=== PATIENT | female | born 1980 ===

== ENCOUNTER 2019-09-25 17:37 | Emergency (ER) | payer SELFPAY ==
[~2019-09-25] VITALS: Ht 152 cm; Wt 56.0 kg
[~2019-09-25 17:37] MED LIST: FERR325T74 PO; OXYC-12 PO; PREN1TAB39 PO
--- OUTSIDE RECORDS SUMMARY | 2019-09-25 17:43 | XMS REPORT ---
Author Author Hanny SONG Organization [employer] Address Unknown Phone Unavailable Care Team Providers Care [employer] Cross[employer] Protection Maintainer Name Role Phone MURALI SONG CP Unavailable Allergies, Adverse Reactions, Alerts Substance Reaction Event Type N.K.D.A. Info Not Available Non Drug Allergy Problems Problem Type Condition Code Onset Dates Condition Statu s Assessment Bite or sting by insect with infection W57.XXXA Active Medications Medication Code System Code Instructions Start Date End Date Status Dosage Bactrim DS [facility] [address]-15 800-160 MG Orally Twice a day Apr 19, 2015 Apr 29, 2015 1 tablet Procedures Procedure Coding System Code Date ROCEPHIN 1 GM (IM) CPT-4 J0696 Apr 19, 2015 THER/PROPH/DIAG INJ, SC/IM CPT-4 36364 Mar 232014 Office Visit, Est Pt., Level 3 CPT-4 23456 D 2014 Vital Signs Date/Time: Apr 19, 2015 Temperature 98.0 F Weight 118.9 lbs Height 62 in BMI 21.74 Index Blood Pressure Diastolic 72 mmHg Blood Pressure Systolic 110 mmHg Cardiac Monitoring Heart Rate 84 bpm Results No Known Results Summary Purpose [employer] Submission
--- OUTSIDE RECORDS SUMMARY | 2019-09-25 17:43 | XMS REPORT ---
Author Author Hanny Chavis Doctor Organization [facility] Address Unknown Phone Unavailable Care Team Providers Care Whitewasher Name Role Phone Migration, Doctor Unavailable Unavailable PROBLEMS Type Condition ICD9-CM Code [id number] Code Onset Dates Condition S tatus SNOMED Code Problem Chronic fatigue R53.82 Active 8422 9001 Problem Slow transit constipation K59.01 Acti ve [id number] ALLERGIES No Information ENCOUNTERS Encounter Location Date Diagnosis [place] [address] [address] Jul, Chronic fatigue R53.82 ; Taz r loss L65.9 ; Slow transit constipation K59.01 ; Pain in right shoulder M25.511 and Pain in left shoulder M25.512 [place] [address] [address] Mar, Bite or sting by insect with infection [id number].XXXA [place] [address] [address] Nov, [facility] [address] [address] Nov, [facility] [address] [address] Nov, [facility] [address] [address] Nov, [facility] [address] [address] Nov, [facility] [address] [address] Nov, [facility] [address] [place] [id number] [address] [place] [address] Jul, [facility] [address] [id number] [address] [place] [address], [place] [address] Jul, [facility] [address] [id number] [address] [place] [address], [place] [address] Jun, [facility] [address] [id number] [address] [place] [address], [place] [address] Jun, [facility] [address] [id number] [address] [place] [address], [place] [address] May, [facility] [address] [id number] [address] [place] [address], [place] [address] May, [facility] [address] [id number] [address] [place] [address], [place] [address] Apr, [facility] [address] [id number] [address] [place] [address], [place] [address] Apr, [facility] [address] [id number] [address] [place] [address], [place] [address] Apr, [facility] [address] [id number] [address] [place] [address], [place] [address] Apr, [facility] [address] [id number] [address] [place] [address], [place] [address] Apr, [facility] [address] [id number] [address] [place] [address], [place] [address] Mar, [facility] [address] [id number] [address] [place] [address], [place] [address] Mar, [facility] [address] [id number] [address] [place] [address], [place] [address] Feb, [facility] [address] [id number] [address] [place] [address], [place] [address] Feb, [facility] [address] [id number] [address] [place] [address], [place] [address] Oct, [facility] [address] [id number] [address] [place] [address], [place] [address] Jul, 2011 [facility] [address] [id number] [address] [place] [address], [place] [address] 18 Jul, 2011 [facility] [address] [id number] [address] [place] [address], [place] [address] 16 Jul, 2011 [facility] [address] [id number] [address] [place] [address], [place] [address] 14 Jul, 2011 [facility] [address] [id number] [address] [place] [address], [place] [address] 13 Jul, 2011 [facility] [address] [id number] [address] [place] [address], [place] [address] 11 Jul, 2011 [facility] [address] [id number] [address] [place] [address], [place] [address] 26 Jun, 2011 [facility] [address] [id number] [address] [place] [address], [place] [address] Jun, [facility] [address] [id number] [address] [place] [address], [place] [address] 29 May, 2011 [facility] [address] [id number] [address] [place] [address], [place] [address] 13 May, 2011 [facility] [address] [id number] [address] [place] [address], [place] [address] Apr, [facility] [address] [id number] [address] [place] [address], [place] [address] Apr, [facility] [address] [id number] [address] [place] [address], [place] [address] Apr, [facility] [address] [id number] [address] [place] [address], [place] [address] 14 Mar, 2011 [facility] [address] [id number] [address] [place] [address], [place] [address] 14 Mar, 2011 [facility] [address] [id number] [address] [place] [address], [place] [address] 16 Feb, 2011 [facility] [address] [id number] [address] [place] [address] Feb, [facility] [address] [id number] [address] [place] [address] Feb, [facility] [address] [id number] [address] [place] [address] Jan, [facility] [address] [id number] [address] [place] [address] Jan, [facility] [address] [id number] [address] [place] [address] Jan, [facility] [address] [id number] [address] [place] [address] Jan, [facility] [address] [id number] [address] [place] [address] Jan, [facility] [address] [id number] [address] [place] [address] Oct, IMMUNIZATIONS No Known Immunizations SOCIAL HISTORY Never Assessed REASON FOR VISIT EMR[place] [place] CARE VITAL SIGNS MEDICATIONS No Known Medications RESULTS No Results PROCEDURES No Known procedures INSTRUCTIONS MEDICATIONS ADMINISTERED No Known Medications
--- OUTSIDE RECORDS SUMMARY | 2019-09-25 17:43 | XMS REPORT ---
Author Author Hanny Chavis Doctor Organization [facility] Address Unknown Phone Unavailable Care Team Providers Care [employer] Internship Name Role Phone Migration, Doctor Unavailable Unavailable PROBLEMS Type Condition ICD9-CM Code QCB90-SV Code Onset Dates Condition S tatus SNOMED Code Problem Chronic fatigue R53.82 Active 8422 9001 Problem Slow transit constipation K59.01 Acti ve [id number] ALLERGIES No Information ENCOUNTERS Encounter Location Date Diagnosis [place] [address] [address] Jul, Chronic fatigue R53.82 ; Taz r loss L65.9 ; Slow transit constipation K59.01 ; Pain in right shoulder M25.511 and Pain in left shoulder M25.512 [place] [address] [address] Mar, Bite or sting by insect with infection W57.XXXA [place] [address] [address] Nov, [facility] [address] [address] Nov, [facility] [address] [address] Nov, [facility] [address] [address] Nov, [facility] [address] [address] Nov, [facility] [address] [address] Nov, [facility] [address] [place] [id number] [address] [place] [address] Jul, [facility] [address] [id number] [address] [place] [address], [place] [address] Jul, [facility] [address] [id number] [address] [place] [address], [place] [address] Jun, [facility] [address] [id number] [address] [place] [address], [place] [address] Jun, [facility] [address] [id number] [address] [place] [address], [place] [address] May, [facility] [address] [id number] [address] [place] [address], [place] [address] May, [facility] [address] [id number] [address] [place] [address], [place] [address] Apr, [facility] [address] [id number] [address] [place] [address], [place] [address] Apr, [facility] [address] [id number] [address] [place] [address], [place] [address] Apr, [facility] [address] [id number] [address] [place] [address], [place] [address] Apr, [facility] [address] [id number] [address] [place] [address], [place] [address] Apr, [facility] [address] [id number] [address] [place] [address], [place] [address] Mar, [facility] [address] [id number] [address] [place] [address], [place] [address] Mar, [facility] [address] [id number] [address] [place] [address], [place] [address] Feb, [facility] [address] [id number] [address] [place] [address], [place] [address] Feb, [facility] [address] [id number] [address] [place] [address], [place] [address] Oct, [facility] [address] [id number] [address] [place] [address], [place] [address] Jul, 2011 [facility] [address] [id number] [address] [place] [address], [place] [address] 18 Jul, 2011 [facility] [address] [id number] [address] [place] [address], [place] [address] 16 Jul, 2011 [facility] [address] [id number] [address] [place] [address], [place] [address] 14 Jul, 2011 [facility] [address] [id number] [address] [place] [address], [place] [address] 13 Jul, 2011 [facility] [address] [id number] [address] [place] [address], [place] [address] 11 Jul, 2011 [facility] [address] [id number] [address] [place] [address], [place] [address] 26 Jun, 2011 [facility] [address] [id number] [address] [place] [address], [place] [address] Jun, [facility] [address] [id number] [address] [place] [address], [place] [address] 29 May, 2011 [facility] [address] [id number] [address] [place] [address], [place] [address] 13 May, 2011 [facility] [address] [id number] [address] [place] [address], [place] [address] Apr, [facility] [address] [id number] [address] [place] [address], [place] [address] Apr, [facility] [address] [id number] [address] [place] [address], [place] [address] Apr, [facility] [address] [id number] [address] [place] [address], [place] [address] 14 Mar, 2011 [facility] [address] [id number] [address] [place] [address], [place] [address] 14 Mar, 2011 [facility] [address] [id number] [address] [place] [address], [place] [address] 16 Feb, 2011 [facility] [address] [id number] [address] [place] [address] Feb, [facility] [address] [id number] [address] [place] [address] Feb, [facility] [address] [id number] [address] [place] [address] Jan, [facility] [address] [id number] [address] [place] [address] Jan, [facility] [address] [id number] [address] [place] [address] Jan, [facility] [address] [id number] [address] [place] [address] Jan, [facility] [address] [id number] [address] [place] [address] Jan, [facility] [address] [id number] [address] [place] [address] Oct, IMMUNIZATIONS No Known Immunizations SOCIAL HISTORY Never Assessed REASON FOR VISIT PLAN OF CARE VITAL SIGNS MEDICATIONS No Known Medications RESULTS No Results PROCEDURES No Known procedures INSTRUCTIONS MEDICATIONS ADMINISTERED No Known Medications
--- OUTSIDE RECORDS SUMMARY | 2019-09-25 17:43 | XMS REPORT ---
Author Author Hanny Fair Organization [facility] Address [address] [place] [address] Care Team Providers Care Gizzard Skin Remover Name Role Phone MOSES Fair Unavailable PROBLEMS Type Condition ICD9-CM Code ERK26-QH Code Onset Dates Condition S tatus SNOMED Code Problem Chronic fatigue R53.82 Active 8422 9001 Problem Slow transit constipation K59.01 Acti ve [id number] ALLERGIES No Information ENCOUNTERS Encounter Location Date Diagnosis [place] [address] [address] [place] [id number] [address] [place] [address] Dec, [place] [address] [address] Jul, Chronic fatigue R53.82 ; Taz r loss L65.9 ; Slow transit constipation K59.01 ; Pain in right shoulder M25.511 and Pain in left shoulder M25.512 [place] [address] [place] [id number] [address] [place] [address] Mar, Bite or sting by insect with infection W57.XXXA [place] [address] [place] [address] Nov, [place] [address] [place] [id number] [address] [place] [address] Nov, [place] [address] [place] [id number] [address] [place] [address] Nov, [place] [address] [place] [id number] [address] [place] [address] Nov, [place] [address] [place] [id number] [address] [place] [address] Nov, [facility] [address] [id number] [address] [place] [address], [place] [address] Nov, [facility] [address] [id number] [address] [place] [address], [place] [address] Jul, [facility] [address] [id number] [address] [place] [address], [place] [address] Jul, [facility] [address] [id number] [address] [place] [address], [place] [address] Jun, [facility] [address] [id number] [address] [place] [address], [place] [address] Jun, [facility] [address] [id number] [address] [place] [address], [place] [address] May, [facility] [address] [id number] [address] [place] [address], [place] [address] May, [facility] [address] [id number] [address] [place] [address], [place] [address] Apr, [facility] [address] [id number] [address] [place] [address], [place] [address] Apr, [facility] [address] [id number] [address] [place] [address], [place] [address] Apr, [facility] [address] [id number] [address] [place] [address], [place] [address] Apr, [facility] [address] [id number] [address] [place] [address], [place] [address] Apr, [facility] [address] [id number] [address] [place] [address], [place] [address] Mar, [facility] [address] [id number] [address] [place] [address], [place] [address] Mar, [facility] [address] [id number] [address] [place] [address], [place] [address] Feb, [facility] [address] [id number] [address] [place] [address], [place] [address] 06 Feb, 2012 [facility] [address] [id number] [facility] [place] [address] 05 Oct, 2011 [facility] [address] [id number] [address] [place] [address], [place] [address] 25 Jul, 2011 [facility] [address] [id number] [address] [place] [address], [place] [address] 18 Jul, 2011 [facility] [address] [id number] [address] [place] [address], [place] [address] 16 Jul, 2011 [facility] [address] [id number] [address] [place] [address], [place] [address] 14 Jul, 2011 [facility] [address] [id number] [address] [place] [address], [place] [address] 13 Jul, 2011 [facility] [address] [id number] [address] [place] [address], [place] [address] Jul, [facility] [address] [id number] [address] [place] [address], [place] [address] Jun, [facility] [address] [id number] [address] [place] [address], [place] [address] Jun, [facility] [address] [id number] [address] [place] [address], [place] [address] 29 May, 2011 [facility] [address] [id number] [address] [place] [address], [place] [address] 13 May, 2011 [facility] [address] [id number] [address] [place] [address], [place] [address] Apr, [facility] [address] [id number] [address] [place] [address], [place] [address] Apr, [facility] [address] [id number] [address] [place] [address], [place] [address] Apr, [facility] [address] [id number] [address] [place] [address], [place] [address] 14 Mar, 2011 [facility] [address] [id number] [address] [place] [address] 14 Mar, 2011 [facility] [address] [id number] [address] [place] [address] Feb, [facility] [address] [id number] [address] [place] [address] 16 Feb, 2011 [facility] [address] [id number] [address] [place] [address] 04 Feb, 2011 [facility] [address] [id number] [address] [place] [address] Jan, [facility] [address] [id number] [address] [place] [address] Jan, [facility] [address] [id number] [address] [place] [address] Jan, [facility] [address] [id number] [address] [place] [address] Jan, [facility] [address] [id number] [address] [place] [address] Jan, [facility] [address] [id number] [address] [place] [address] Oct, IMMUNIZATIONS No Known Immunizations SOCIAL HISTORY Never Assessed REASON FOR VISIT PLAN OF CARE VITAL SIGNS Height 62 in 2013-11-29 Weight 111.89 lbs 2013-11-29 Temperature 97.9 degrees Fahrenheit 2013-11-29 Heart Rate 80 bpm 2013-11-29 Respiratory Rate 18 2013-11-29 Blood pressure systolic 108 mmHg 2013-11-29 Blood pressure diastolic 70 mmHg 2013-11-29 MEDICATIONS Unknown Medications RESULTS No Results PROCEDURES Procedure Date Ordered Result Body Site TRICHOMONAS VAGIN, DIR PROBE Nov 29, 2013 SCR PAP SMER;NEW PT OBTAIN PREP&CONVY-LAB Nov 29, 2013 CYTOPATH C/V AUTO FLUID REDO Nov 29, 2013 CHYLMD TRACH, DNA, AMP PROBE Nov 29, 2013 CULTURE, BACTERIA, OTHER Nov 29, 2013 INSTRUCTIONS MEDICATIONS ADMINISTERED No Known Medications
--- OUTSIDE RECORDS SUMMARY | 2019-09-25 17:43 | XMS REPORT ---
Author Author Hanny Chavis Doctor Organization [facility] Address Unknown Phone Unavailable Care Team Providers Care Compotype Operator Name Role Phone Migration, Doctor Unavailable Unavailable PROBLEMS Type Condition ICD9-CM Code LOS58-GT Code Onset Dates Condition S tatus SNOMED Code Problem Chronic fatigue R53.82 Active 8422 9001 Problem Slow transit constipation K59.01 Acti ve [id number] ALLERGIES No Information ENCOUNTERS Encounter Location Date Diagnosis [facility] [address] [address] Jul, Chronic fatigue R53.82 ; Taz r loss L65.9 ; Slow transit constipation K59.01 ; Pain in right shoulder M25.511 and Pain in left shoulder M25.512 [place] [address] [address] Mar, Bite or sting by insect with infection [id number].XXXA [place] [address] [address] Nov, [facility] [address] [address] Nov, [facility] [address] [address] Nov, [facility] [address] [address] Nov, [facility] [address] [address] Nov, [facility] [address] [address] Nov, [facility] [address] [place] [id number] [address] [place] [address] Jul, [facility] [address] [id number] [address] [place] [address], [place] [address] Jul, [facility] [address] [id number] [address] [place] [address], [place] [address] Jun, [facility] [address] [id number] [address] [place] [address], [place] [address] Jun, [facility] [address] [id number] [address] [place] [address], [place] [address] May, [facility] [address] [id number] [address] [place] [address], [place] [address] May, [facility] [address] [id number] [address] [place] [address], [place] [address] Apr, [facility] [address] [id number] [address] [place] [address], [place] [address] Apr, [facility] [address] [id number] [address] [place] [address], [place] [address] Apr, [facility] [address] [id number] [address] [place] [address], [place] [address] Apr, [facility] [address] [id number] [address] [place] [address], [place] [address] Apr, [facility] [address] [id number] [address] [place] [address], [place] [address] Mar, [facility] [address] [id number] [address] [place] [address], [place] [address] Mar, [facility] [address] [id number] [address] [place] [address], [place] [address] Feb, [facility] [address] [id number] [address] [place] [address], [place] [address] Feb, [facility] [address] [id number] [address] [place] [address], [place] [address] Oct, [facility] [address] [id number] [address] [place] [address], [place] [address] Jul, 2011 [facility] [address] [id number] [address] [place] [address], [place] [address] 18 Jul, 2011 [facility] [address] [id number] [address] [place] [address], [place] [address] 16 Jul, 2011 [facility] [address] [id number] [address] [place] [address], [place] [address] 14 Jul, 2011 [facility] [address] [id number] [address] [place] [address], [place] [address] 13 Jul, 2011 [facility] [address] [id number] [address] [place] [address], [place] [address] 11 Jul, 2011 [facility] [address] [id number] [address] [place] [address], [place] [address] 26 Jun, 2011 [facility] [address] [id number] [address] [place] [address], [place] [address] Jun, [facility] [address] [id number] [address] [place] [address], [place] [address] 29 May, 2011 [facility] [address] [id number] [address] [place] [address], [place] [address] 13 May, 2011 [facility] [address] [id number] [address] [place] [address], [place] [address] Apr, [facility] [address] [id number] [address] [place] [address], [place] [address] Apr, [facility] [address] [id number] [address] [place] [address], [place] [address] Apr, [facility] [address] [id number] [address] [place] [address], [place] [address] 14 Mar, 2011 [facility] [address] [id number] [address] [place] [address], [place] [address] 14 Mar, 2011 [facility] [address] [id number] [address] [place] [address], [place] [address] 16 Feb, 2011 [facility] [address] [id number] [address] [place] [phone] Feb, [facility] [address] [id number] [address] [place] [phone] Feb, [facility] [address] [id number] [address] [place] [id number] Jan, [facility] [address] [id number] [address] [place] [phone] Jan, [facility] [address] [id number] [address] [place] [phone] Jan, [facility] [address] [id number] [address] [place] [id number] Jan, [facility] [address] [id number] [address] [place] [phone] Jan, [facility] [address] [id number] [address] [place] [phone] Oct, IMMUNIZATIONS No Known Immunizations SOCIAL HISTORY Never Assessed REASON FOR VISIT [place] [place] CARE VITAL SIGNS MEDICATIONS No Known Medications RESULTS No Results PROCEDURES No Known procedures INSTRUCTIONS MEDICATIONS ADMINISTERED No Known Medications
--- OUTSIDE RECORDS SUMMARY | 2019-09-25 17:43 | XMS REPORT ---
Author Author Hanny SOL [facility] Address [address] [place] [address] Care Team Providers Care Aluminum Container Tester Name Role Phone MANUEL SOL Unavailable PROBLEMS Type Condition ICD9-CM Code [id number] Code Onset Dates Condition S tatus SNOMED Code Problem Chronic fatigue R53.82 Active 8422 9001 Problem Slow transit constipation K59.01 Acti ve [id number] ALLERGIES No Information ENCOUNTERS Encounter Location Date Diagnosis [facility] [address] [place] [id number] [address] [place] [address] Jul, Chronic fatigue R53.82 ; Taz r loss L65.9 ; Slow transit constipation K59.01 ; Pain in right shoulder M25.511 and Pain in left shoulder M25.512 [facility] [address] [place] [id number] [address] [place] [address] Mar, Bite or sting by insect with infection [id number].XXXA [facility] [address] [facility] [id number] [address] [place] [phone] Nov, [facility] [address] [facility] [id number] [address] [place] [address] Nov, [facility] [address] [facility] [id number] [address] [place] [phone] Nov, [facility] [address] [facility] [id number] [address] [place] [address] Nov, [facility] [address] [place] [id number] [address] [place] [address] Nov, [facility] [address] [place] [id number] [address] [place] [address] Nov, [facility] [address] [id number] [address] [place] [address], [place] [id number] Jul, [facility] [address] [id number] [address] [place] [address], [place] [id number] Jul, [facility] [address] [id number] [address] [place] [address], [place] [id number] Jun, [facility] [address] [id number] [address] [place] [address], [place] [id number] Jun, [facility] [address] [id number] [address] [place] [address], [place] [id number] May, [facility] [address] [id number] [address] [place] [address], [place] [id number] May, [facility] [address] [id number] [address] [place] [address], [place] [id number] Apr, [facility] [address] [id number] [address] [place] [address], [place] [id number] Apr, [facility] [address] [id number] [address] [place] [address], [place] [id number] Apr, [facility] [address] [id number] [address] [place] [address], [place] [id number] Apr, [facility] [address] [id number] [address] [place] [address], [place] [id number] Apr, [facility] [address] [id number] [address] [place] [address], [place] [id number] Mar, [facility] [address] [id number] [address] [place] [address], [place] [id number] Mar, [facility] [address] [id number] [address] [place] [address], [place] [id number] Feb, [facility] [address] [id number] [address] [place] [address], [place] [id number] Feb, [facility] [address] [id number] [address] [place] [address], [place] [id number] Oct, [facility] [address] [id number] [address] [place] [address], [place] [id number] 25 Jul, 2011 [facility] [address] [id number] [address] [place] [address], [place] [id number] 18 Jul, 2011 [facility] [address] [id number] [address] [place] [address], [place] [id number] 16 Jul, 2011 [facility] [address] [id number] [address] [place] [address], [place] [id number] 14 Jul, 2011 [facility] [address] [id number] [address] [place] [address], [place] [id number] 13 Jul, 2011 [facility] [address] [id number] [address] [place] [address], [place] [id number] 11 Jul, 2011 [facility] [address] [id number] [address] [place] [address], [place] [id number] 26 Jun, 2011 [facility] [address] [id number] [address] [place] [address], [place] [id number] Jun, [facility] [address] [id number] [address] [place] [address], [place] [id number] 29 May, 2011 [facility] [address] [id number] [address] [place] [address], [place] [id number] 13 May, 2011 [facility] [address] [id number] [address] [place] [address], [place] [id number] Apr, [facility] [address] [id number] [address] [place] [address], [place] [id number] Apr, [facility] [address] [id number] [address] [place] [address], [place] [id number] Apr, [facility] [address] [id number] [address] [place] [address], [place] [id number] 14 Mar, 2011 [facility] [address] [id number] [address] [place] [address], [place] [id number] 14 Mar, 2011 [facility] [address] [id number] [address] [place] [id number] 16 Feb, 2011 [facility] [address] [id number] [address] [place] [id number] 16 Feb, 2011 [facility] [address] [id number] [address] [place] [phone] Feb, [facility] [address] [id number] [address] [place] [phone] Jan, [facility] [address] [id number] [address] [place] [phone] Jan, [facility] [address] [id number] [address] [place] [phone] Jan, [facility] [address] [id number] [address] [place] [id number] Jan, [facility] [address] [id number] [address] [place] [phone] Jan, [facility] [address] [id number] [address] [place] [phone] Oct, IMMUNIZATIONS No Known Immunizations SOCIAL HISTORY Never Assessed REASON FOR VISIT PLAN OF CARE VITAL SIGNS Height 62 in 2011-08-07 Weight 115.5 lbs 2011-08-07 Temperature 97.1 degrees Fahrenheit 2011-08-07 Heart Rate 88 bpm 2011-08-07 Respiratory Rate 16 2011-08-07 Blood pressure systolic 116 mmHg 2011-08-07 Blood pressure diastolic 76 mmHg 2011-08-07 MEDICATIONS No Known Medications RESULTS No Results PROCEDURES Procedure Date Ordered Result Body Site NON-STRESS TEST August 07, 2011 URINE-NO MICRO August 07, 2011 INSTRUCTIONS MEDICATIONS ADMINISTERED No Known Medications
--- OUTSIDE RECORDS SUMMARY | 2019-09-25 17:43 | XMS REPORT ---
Author Author Hanny Chavis Doctor Organization [facility] Address Unknown Phone Unavailable Care Team Providers Care Store Sales Consultant Name Role Phone Migration, Doctor Unavailable Unavailable PROBLEMS Type Condition ICD9-CM Code [id number] Code Onset Dates Condition S tatus SNOMED Code Problem Chronic fatigue R53.82 Active 8422 9001 Problem Slow transit constipation K59.01 Acti ve [id number] ALLERGIES No Information ENCOUNTERS Encounter Location Date Diagnosis [place] [address] [address] Jul, Chronic fatigue R53.82 ; Taz r loss L65.9 ; Slow transit constipation K59.01 ; Pain in right shoulder M25.511 and Pain in left shoulder M25.512 [place] [address] [address] Mar, Bite or sting by insect with infection W57.XXXA [place] [address] [address] Nov, [facility] [address] [id number] Nov, [facility] [address] [address] Nov, [facility] [address] [address] Nov, [facility] [address] [id number] Nov, [facility] [address] [id number] Nov, [facility] [address] [place] [id number] [address] [place] [phone] Jul, [facility] [address] [id number] [address] [place] [address], [place] [address] Jul, [facility] [address] [id number] [address] [place] [address], [place] [address] Jun, [facility] [address] [id number] [address] [place] [address], [place] [address] Jun, [facility] [address] [id number] [address] [place] [address], [place] [address] May, [facility] [address] [id number] [address] [place] [address], [place] [address] May, [facility] [address] [id number] [address] [place] [address], [place] [id number] Apr, [facility] [address] [id number] [address] [place] [address], [place] [address] Apr, [facility] [address] [id number] [address] [place] [address], [place] [address] Apr, [facility] [address] [id number] [address] [place] [address], [place] [address] Apr, [facility] [address] [id number] [address] [place] [address], [place] [address] Apr, [facility] [address] [id number] [address] [place] [address], [place] [address] Mar, [facility] [address] [id number] [address] [place] [address], [place] [address] Mar, [facility] [address] [id number] [address] [place] [address], [place] [address] Feb, [facility] [address] [id number] [address] [place] [address], [place] [address] Feb, [facility] [address] [id number] [address] [place] [address], [place] [address] Oct, [facility] [address] [id number] [address] [place] [address], [place] [address] Jul, 2011 [facility] [address] [id number] [address] [place] [address], [place] [address] 18 Jul, 2011 [facility] [address] [id number] [address] [place] [address], [place] [address] 16 Jul, 2011 [facility] [address] [id number] [address] [place] [address], [place] [address] 14 Jul, 2011 [facility] [address] [id number] [address] [place] [address], [place] [address] 13 Jul, 2011 [facility] [address] [id number] [address] [place] [address], [place] [address] 11 Jul, 2011 [facility] [address] [id number] [address] [place] [address], [place] [address] 26 Jun, 2011 [facility] [address] [id number] [address] [place] [address], [place] [address] Jun, [facility] [address] [id number] [address] [place] [address], [place] [address] 29 May, 2011 [facility] [address] [id number] [address] [place] [address], [place] [address] 13 May, 2011 [facility] [address] [id number] [address] [place] [address], [place] [address] Apr, [facility] [address] [id number] [address] [place] [address], [place] [address] Apr, [facility] [address] [id number] [address] [place] [address], [place] [address] Apr, [facility] [address] [id number] [address] [place] [address], [place] [address] 14 Mar, 2011 [facility] [address] [id number] [address] [place] [address], [place] [address] 14 Mar, 2011 [facility] [address] [id number] [address] [place] [address], [place] [address] 16 Feb, 2011 [facility] [address] [id number] [address] [place] [phone] Feb, [facility] [address] [id number] [address] [place] [phone] Feb, [facility] [address] [id number] [address] [place] [phone] Jan, [facility] [address] [id number] [address] [place] [phone] Jan, [facility] [address] [id number] [address] [place] [phone] Jan, [facility] [address] [id number] [address] [place] [id number] Jan, [facility] [address] [id number] [address] [place] [phone] Jan, [facility] [address] [id number] [address] [place] [id number] Oct, IMMUNIZATIONS No Known Immunizations SOCIAL HISTORY Never Assessed REASON FOR VISIT EMR-[facility] PLAN OF CARE VITAL SIGNS MEDICATIONS No Known Medications RESULTS No Results PROCEDURES No Known procedures INSTRUCTIONS MEDICATIONS ADMINISTERED No Known Medications
--- OUTSIDE RECORDS SUMMARY | 2019-09-25 17:43 | XMS REPORT ---
Author Author Hanny Chavis Doctor Organization [facility] Address Unknown Phone Unavailable Care Team Providers Care Striper Spray Gun Name Role Phone Migration, Doctor Unavailable Unavailable PROBLEMS Type Condition ICD9-CM Code DHU23-ME Code Onset Dates Condition S tatus SNOMED Code Problem Other chronic pain G89.29 Active 8 4692615 Problem Otitis externa H60.90 Active 49412 09 Problem Chronic fatigue R53.82 Active 8422 9001 Problem Slow transit constipation K59.01 Acti ve 26695314 Problem Lumbago with sciatica, right side M54.41 Active [id number] ALLERGIES No Information ENCOUNTERS Encounter Location Date Diagnosis [facility] [address] [id number] [place] [id number] Apr, Dental examination Z01.20 and Caries K02 .9 [facility] [id number] [place] [address] Mar, Otitis externa H60.90 and Dentalgia K08. 89 [facility] [id number] [address] [place] [address] Jan, Left otitis media, unspecifi ed otitis media type H66.92 [facility] [address] [address] Jan, Acute suppurative otitis med ia of left ear without spontaneous rupture of tympanic membrane, recurrence not specified H66.002 [facility] [address] [address] 13 Dec, 2018 Lumbago with sciatica, right side M54.41 ; Other chronic pain G89.29 and Cervical radiculopathy M54.12 [facility] [address] [address] Jul, Chronic fatigue R53.82 ; Hair loss L65.9 ; Slow transit constipation K59.01 ; Pain in right shoulder M25.511 and Pain in left shoulder M25.512 [facility] [address] [address] Mar, Bite or sting by insect with infection W 57.XXXA [facility] [address] [address] Nov, [facility] [address] [address] Nov, [facility] [address] [address] Nov, [facility] [address] [address] Nov, [facility] [address] [address] Nov, [facility] [address] [address] Nov, [facility] [address] [address] Jul, [facility] [address] [address] Jul, [facility] [address] [address] Jun, [facility] [address] [address] Jun, [facility] [address] [address] May, [facility] [address] [address] May, [facility] [address] [address] Apr, [facility] [address] [address] Apr, [facility] [address] [address] 08 Apr, 2012 [facility] [address] [facility] [id number] [place] [address] Apr, [facility] [address] [id number] [place] [address] Apr, [facility] [address] [id number] [place] [address] Mar, [facility] [address] [id number] [place] [address] Mar, [facility] [address] [id number] [place] [address] Feb, [facility] [address] [id number] [place] [address] Feb, [facility] [address] [id number] [place] [address] Oct, [facility] [address] [id number] [place] [address] 25 Jul, 2011 [facility] [address] [id number] [place] [address] 18 Jul, 2011 [facility] [address] [id number] [place] [address] 16 Jul, 2011 [facility] [address] [id number] [place] [address] 14 Jul, 2011 [facility] [address] [id number] [place] [address] 13 Jul, 2011 [facility] [address] [id number] [place] [address] 11 Jul, 2011 [facility] [address] [id number] [place] [address] Jun, [facility] [address] [id number] [place] [address] Jun, [facility] [address] [id number] [place] [address] May, [facility] [id number] [place] [address] 13 May, 2011 [facility] [id number] [place] [address] Apr, [facility] [address] [id number] [place] [address] Apr, [facility] [id number] [place] [address] Apr, [facility] [id number] [place] [address] Mar, [facility] [id number] [place] [address] Mar, [facility] [id number] [place] [address] Feb, [facility] [id number] [place] [address] Feb, [facility] [id number] [place] [address] Feb, [facility] [id number] [place] [address] Jan, [facility] [id number] [place] [address] Jan, [facility] [id number] [place] [address] Jan, [facility] [id number] [place] [address] Jan, [facility] [address] [id number] [place] [address] Jan, [facility] [id number] [place] [address] Oct, IMMUNIZATIONS No Known Immunizations SOCIAL HISTORY Never Assessed REASON FOR VISIT PLAN OF CARE VITAL SIGNS MEDICATIONS Unknown Medications RESULTS No Results PROCEDURES No Known procedures INSTRUCTIONS MEDICATIONS ADMINISTERED No Known Medications MEDICAL (GENERAL) HISTORY Type Description Date Surgical History No know Surgical history Hospitalization History child
--- OUTSIDE RECORDS SUMMARY | 2019-09-25 17:43 | XMS REPORT ---
Author Author Hanny LASSITER Organization [facility] Address [address] [place] [address] Care Team Providers Care Envelope Sealer Name Role Phone KESHAV LASSITER Unavailable PROBLEMS Type Condition ICD9-CM Code QTO16-NH Code Onset Dates Condition S tatus SNOMED Code Problem Slow transit constipation K59.01 Acti ve 53317891 Problem Chronic fatigue R53.82 Active 8422 9001 ALLERGIES No Known Allergies ENCOUNTERS Encounter Location Date Diagnosis [facility] [address] [facility] [id number] [address] [place] [address] Jul, Chronic fatigue R53.82 ; Taz r loss L65.9 ; Slow transit constipation K59.01 ; Pain in right shoulder M25.511 and Pain in left shoulder M25.512 [facility] [address] [facility] [id number] [address] [place] [address] Mar, Bite or sting by insect with infection W57.XXXA [facility] [address] [facility] [id number] [address] [place] [address] Nov, [facility] [address] [facility] [id number] [address] [place] [address] Nov, [facility] [address] [facility] [id number] [address] [place] [address] Nov, [facility] [address] [facility] [id number] [address] [place] [address] Nov, [facility] [address] [facility] [id number] [address] [place] [address] Nov, [facility] [address] [facility] [id number] [address] [place] [address] Nov, [facility] [address] [id number] [address] [place] [address], [place] [address] Jul, [facility] [address] [id number] [address] [place] [address], [place] [address] Jul, [facility] [address] [id number] [address] [place] [address], [place] [address] Jun, [facility] [address] [id number] [address] [place] [address], [place] [address] Jun, [facility] [address] [id number] [address] [place] [address], [place] [address] May, [facility] [address] [id number] [address] [place] [address], [place] [address] May, [facility] [address] [id number] [address] [place] [address], [place] [address] Apr, [facility] [address] [id number] [address] [place] [address], [place] [address] Apr, [facility] [address] [id number] [address] [place] [address], [place] [address] Apr, [facility] [address] [id number] [address] [place] [address], [place] [address] Apr, [facility] [address] [id number] [address] [place] [address], [place] [address] Apr, [facility] [address] [id number] [address] [place] [address], [place] [address] Mar, [facility] [address] [id number] [address] [place] [address], [place] [address] Mar, [facility] [address] [id number] [address] [place] [address], [place] [address] Feb, [facility] [address] [id number] [address] [place] [address], [place] [address] Feb, [facility] [address] [id number] [address] [place] [address], [place] [address] Oct, [facility] [address] [id number] [address] [place] [address], [place] [address] 25 Jul, 2011 [facility] [address] [id number] [address] [place] [address], [place] [address] 18 Jul, 2011 [facility] [address] [id number] [address] [place] [address], [place] [address] 16 Jul, 2011 [facility] [address] [id number] [address] [place] [address], [place] [address] 14 Jul, 2011 [facility] [address] [id number] [address] [place] [address], [place] [address] 13 Jul, 2011 [facility] [address] [id number] [address] [place] [address], [place] [address] 11 Jul, 2011 [facility] [address] [id number] [address] [place] [address], [place] [address] 26 Jun, 2011 [facility] [address] [id number] [address] [place] [address], [place] [address] Jun, [facility] [address] [id number] [address] [place] [address], [place] [address] 29 May, 2011 [facility] [address] [id number] [address] [place] [address], [place] [address] 13 May, 2011 [facility] [address] [id number] [address] [place] [address], [place] [address] Apr, [facility] [address] [id number] [address] [place] [address], [place] [address] Apr, [facility] [address] [id number] [address] [place] [address], [place] [address] Apr, [facility] [address] [id number] [address] [place] [address], [place] [address] 14 Mar, 2011 [facility] [address] [id number] [address] [place] [address], [place] [address] 14 Mar, 2011 [facility] [address] [id number] [address] [place] [address] Feb, [facility] [address] [id number] [address] [place] [address] Feb, [facility] [address] [id number] [address] [place] [address] Feb, [facility] [address] [id number] [address] [place] [address] Jan, [facility] [address] [id number] [address] [place] [address] Jan, [facility] [address] [id number] [address] [place] [address] Jan, [facility] [address] [id number] [address] [place] [address] Jan, [facility] [address] [id number] [address] [place] [address] Jan, [facility] [address] [id number] [address] [place] [address] Oct, IMMUNIZATIONS No Known Immunizations SOCIAL HISTORY Never Assessed REASON FOR VISIT shoulder pain in both shoulders [facility] PLAN OF CARE VITAL SIGNS Height 62 in 2017-08-08 Weight 120 lbs 2017-08-08 Temperature 99.3 degrees Fahrenheit 2017-08-08 Heart Rate 96 bpm 2017-08-08 Respiratory Rate 18 2017-08-08 BMI 21.95 kg/m2 2017-08-08 Blood pressure systolic 98 mmHg 2017-08-08 Blood pressure diastolic 68 mmHg 2017-08-08 MEDICATIONS Medication Instructions Dosage Frequency Start Date End Date Duration S tatus Diclofenac Sodium 75 MG Orally Twice a day 1 tablet with food or mi lk 12h Jul, Sep, 30 day(s) Active Cyclobenzaprine HCl 10 mg Orally 2 times a day 1 tablet as needed 1 2h Jul, Active RESULTS No Results PROCEDURES Procedure Date Ordered Result Body Site COMPREHEN METABOLIC PANEL August 08, 2017 ASSAY THYROID STIM HORMONE August 08, 2017 COMPLETE CBC W/AUTO DIFF WBC August 08, 2017 VENIPUNCT, ROUTINE* August 08, 2017 INSTRUCTIONS MEDICATIONS ADMINISTERED No Known Medications
--- OUTSIDE RECORDS SUMMARY | 2019-09-25 17:43 | XMS REPORT ---
Author Author Hanny Chavis Doctor Organization [facility] Address Unknown Phone Unavailable Care Team Providers Care Bliss Press Operator Name Role Phone Migration, Doctor Unavailable Unavailable PROBLEMS Type Condition ICD9-CM Code EWH81-IB Code Onset Dates Condition S tatus SNOMED Code Problem Other chronic pain G89.29 Active 8 0648331 Problem Otitis externa H60.90 Active 43579 09 Problem Chronic fatigue R53.82 Active 8422 9001 Problem Slow transit constipation K59.01 Acti ve 62544967 Problem Lumbago with sciatica, right side M54.41 Active [id number] ALLERGIES No Information ENCOUNTERS Encounter Location Date Diagnosis [facility] [address] [place] [id number] Apr, Dental examination Z01.20 an d Caries K02.9 [facility] [address] [address] 05 Mar, 2019 Otitis externa H60.90 and De ntalgia K08.89 [facility] [address] [address] Jan, Left otitis media, unspecifi ed otitis media type H66.92 [facility] [id number] [place] [address] 12 Jan, 2019 Acute suppurative otitis med ia of left ear without spontaneous rupture of tympanic membrane, recurrence not specified H66.002 [facility] [address] [address] 13 Dec, 2018 Lumbago with sciatica, right side M54.41 ; Other chronic pain G89.29 and Cervical radiculopathy M54.12 [facility] [id number] [place] [address] Jul, Chronic fatigue R53.82 ; Taz r loss L65.9 ; Slow transit constipation K59.01 ; Pain in right shoulder M25.511 and Pain in left shoulder M25.512 [facility] [address] [address] Mar, Bite or sting by insect with infection W57.XXXA [facility] [address] [address] Nov, [facility] [id number] [place] [address] Nov, [facility] [address] [id number] [place] [address] Nov, [facility] [address] [address] Nov, [facility] [address] [address] Nov, [facility] [address] [address] Nov, [facility] [id number] [place] [address] Jul, [facility] [id number] [place] [address] Jul, [facility] [id number] [place] [address] Jun, [facility] [address] [id number] [place] [address] Jun, [facility] [id number] [place] [address] May, [facility] [id number] [place] [address] May, [facility] [id number] [place] [address] Apr, [facility] [address] [id number] [address] [place] [address], [place] [address] 09 Apr, 2012 [facility] [address] [id number] [address] [place] [address], [place] [address] Apr, [facility] [address] [id number] [address] [place] [address], [place] [address] Apr, [facility] [address] [id number] [address] [place] [address], [place] [address] Apr, [facility] [address] [id number] [address] [place] [address], [place] [address] Mar, [facility] [address] [id number] [address] [place] [address], [place] [address] Mar, [facility] [address] [id number] [address] [place] [address], [place] [address] Feb, [facility] [address] [id number] [address] [place] [address], [place] [address] Feb, [facility] [address] [id number] [address] [place] [address], [place] [address] 05 Oct, 2011 [facility] [address] [id number] [address] [place] [address], [place] [address] 25 Jul, 2011 [facility] [address] [id number] [address] [place] [address], [place] [address] 18 Jul, 2011 [facility] [address] [id number] [address] [place] [address], [place] [address] 16 Jul, 2011 [facility] [address] [id number] [address] [place] [address], [place] [address] 14 Jul, 2011 [facility] [address] [id number] [address] [place] [address], [place] [address] 13 Jul, 2011 [facility] [address] [id number] [address] [place] [address], [place] [address] 11 Jul, 2011 [facility] [address] [id number] [address] [place] [address], [place] [address] 26 Jun, 2011 [facility] [address] [id number] [address] [place] [address], [place] [address] Jun, [facility] [address] [id number] [address] [place] [address], [place] [address] 29 May, 2011 [facility] [address] [id number] [address] [place] [address], [place] [address] 13 May, 2011 [facility] [address] [id number] [address] [place] [address], [place] [address] 13 Apr, 2011 [facility] [address] [id number] [address] [place] [address], [place] [address] Apr, [facility] [address] [id number] [address] [place] [address], [place] [address] Apr, [facility] [address] [id number] [address] [place] [address], [place] [address] 14 Mar, 2011 [facility] [address] [id number] [address] [place] [address], [place] [address] 14 Mar, 2011 [facility] [address] [id number] [address] [place] [address], [place] [address] 16 Feb, 2011 [facility] [address] [id number] [address] [place] [address], [place] [address] 16 Feb, 2011 [facility] [address] [id number] [address] [place] [address], [place] [address] Feb, [facility] [address] [id number] [address] [place] [address], [place] [id number] Jan, [facility] [address] [id number] [address] [place] [address], [place] [address] Jan, [facility] [address] [id number] [address] [place] [address], [place] [address] Jan, [facility] [address] [id number] [address] [place] [address], [place] [address] Jan, [facility] [address] [id number] [address] [place] [id number] Jan, [facility] [address] [facility] [id number] [address] [place] [id number] Oct, IMMUNIZATIONS No Known Immunizations SOCIAL HISTORY Never Assessed REASON FOR VISIT PLAN OF CARE VITAL SIGNS Height 62 in 2011-10-24 Weight 102 lbs 2011-10-24 Temperature 97.2 degrees Fahrenheit 2011-10-24 Heart Rate 88 bpm 2011-10-24 Respiratory Rate 16 2011-10-24 Blood pressure systolic 98 mmHg 2011-10-24 Blood pressure diastolic 60 mmHg 2011-10-24 MEDICATIONS Unknown Medications RESULTS No Results PROCEDURES No Known procedures INSTRUCTIONS MEDICATIONS ADMINISTERED No Known Medications MEDICAL (GENERAL) HISTORY Type Description Date Surgical History No know Surgical history Hospitalization History child
--- OUTSIDE RECORDS SUMMARY | 2019-09-25 17:43 | XMS REPORT ---
Author Author Hanny Fair Organization [facility] Address [address] [place] [address] Care Team Providers Care Group Exercise Class Instructor Name Role Phone MOSES Fair Unavailable PROBLEMS Type Condition ICD9-CM Code [id number] Code Onset Dates Condition S tatus SNOMED Code Problem Other chronic pain G89.29 Active 8 2587491 Problem Otitis externa H60.90 Active 16534 09 Problem Chronic fatigue R53.82 Active 8422 9001 Problem Slow transit constipation K59.01 Acti ve 07921474 Problem Lumbago with sciatica, right side M54.41 Active [id number] ALLERGIES No Information ENCOUNTERS Encounter Location Date Diagnosis [facility] [id number] [place], [place] [id number] Apr, Dental examination Z01.20 and Caries K02 .[address] [address] 05 Mar, 2019 Otitis externa H60.90 and Dentalgia K08. 89 [facility] [place] [id number] [place] [address] Jan, Left otitis media, unspecifi ed otitis media type H66.92 [facility] [address] [place] [address] 12 Jan, 2019 Acute suppurative otitis med ia of left ear without spontaneous rupture of tympanic membrane, recurrence not specified H66.[address] [address] 13 Dec, 2018 Lumbago with sciatica, right side M54.41 ; Other chronic pain G89.29 and Cervical radiculopathy M54.[address] [address] Jul, Chronic fatigue R53.82 ; Hair loss L65.9 ; Slow transit constipation K59.01 ; Pain in right shoulder M25.511 and Pain in left shoulder M25.512 [facility] [address] [address] Mar, Bite or sting by insect with infection W 57.XXXA [facility] [address] [address] Nov, [facility] [address] [address] Nov, [facility] [address] [address] Nov, [facility] [address] [address] Nov, [facility] [address] [address] Nov, [facility] [address] [address] Nov, [facility] [address] [address] Jul, [facility] [address] [address] Jul, [facility] [address] [address] Jun, [facility] [address] [address] Jun, [facility] [address] [address] May, [facility] [address] [address] May, [facility] [address] [address] Apr, [facility] [address] [address] 09 Apr, 2012 [facility] [address] [facility] [id number] [place] [address] Apr, [facility] [address] [id number] [place] [address] Apr, [facility] [address] [id number] [place] [address] Apr, [facility] [address] [id number] [place] [address] Mar, [facility] [address] [facility] [id number] [place] [address] Mar, [facility] [address] [id number] [place] [address] Feb, [facility] [address] [id number] [place] [address] Feb, [facility] [address] [id number] [place] [address] Oct, [facility] [address] [id number] [place] [address] 25 Jul, 2011 [facility] [address] [id number] [place] [address] 18 Jul, 2011 [facility] [address] [id number] [place] [address] 16 Jul, 2011 [facility] [address] [id number] [place] [address] 14 Jul, 2011 [facility] [address] [id number] [place] [address] 13 Jul, 2011 [facility] [address] [id number] [place] [address] 11 Jul, 2011 [facility] [address] [id number] [place] [address] 26 Jun, 2011 [facility] [address] [id number] [place] [address] 12 Jun, 2011 [facility] [id number] [place] [address] 29 May, 2011 [facility] [id number] [place] [address] May, [facility] [id number] [place] [address] Apr, [facility] [id number] [place] [address] Apr, [facility] [id number] [place] [address] Apr, [facility] [id number] [place] [address] Mar, [facility] [id number] [place] [address] Mar, [facility] [id number] [place] [address] Feb, [facility] [id number] [place] [address] Feb, [facility] [id number] [place] [address] Feb, [facility] [id number] [place] [address] Jan, [facility] [id number] [place] [address] Jan, [facility] [id number] [place] [address] Jan, [facility] [id number] [place] [address] Jan, [facility] [id number] [place] [address] Jan, [facility] [id number] [place] [address] Oct, IMMUNIZATIONS No Known Immunizations SOCIAL HISTORY Never Assessed REASON FOR VISIT PLAN OF CARE VITAL SIGNS MEDICATIONS Unknown Medications RESULTS No Results PROCEDURES No Known procedures INSTRUCTIONS MEDICATIONS ADMINISTERED No Known Medications MEDICAL (GENERAL) HISTORY Type Description Date Surgical History No know Surgical history Hospitalization History child
--- OUTSIDE RECORDS SUMMARY | 2019-09-25 17:43 | XMS REPORT ---
Author Author Hanny Chavis Doctor Organization [facility] Address Unknown Phone Unavailable Care Team Providers Care Authorization Nurse Name Role Phone Migration, Doctor Unavailable Unavailable PROBLEMS Type Condition ICD9-CM Code [id number] Code Onset Dates Condition S tatus SNOMED Code Problem Other chronic pain G89.29 Active 8 6479749 Problem Otitis externa H60.90 Active 48220 09 Problem Chronic fatigue R53.82 Active 8422 9001 Problem Slow transit constipation K59.01 Acti ve 25711038 Problem Lumbago with sciatica, right side M54.41 Active [id number] ALLERGIES No Information ENCOUNTERS Encounter Location Date Diagnosis [facility] [address] [id number] [place], [place] [id number] Apr, Dental examination Z01.20 and Caries K02 .9 [facility] [id number] [place] [address] Mar, Otitis externa H60.90 and Dentalgia K08. 89 [facility] [id number] [place] [address] Jan, Left otitis media, unspecifi ed otitis media type H66.92 [facility] [address] [address] Jan, Acute suppurative otitis med ia of left ear without spontaneous rupture of tympanic membrane, recurrence not specified H66.002 [facility] [address] [address] 13 Dec, 2018 Lumbago with sciatica, right side M54.41 ; Other chronic pain G89.29 and Cervical radiculopathy M54.12 [facility] [address] [address] Jul, Chronic fatigue R53.82 ; Hair loss L65.9 ; Slow transit constipation K59.01 ; Pain in right shoulder M25.511 and Pain in left shoulder M25.512 [facility] [address] [address] Mar, Bite or sting by insect with infection W 57.XXXA [facility] [address] [address] Nov, [facility] [address] [address] Nov, [facility] [address] [address] Nov, [facility] [address] [address] Nov, [facility] [address] [address] Nov, [facility] [address] [address] Nov, [facility] [address] [address] Jul, [facility] [address] [address] Jul, [facility] [address] [address] Jun, [facility] [address] [address] Jun, [facility] [address] [address] May, [facility] [address] [address] May, [facility] [address] [address] Apr, [facility] [address] [address] Apr, [facility] [address] [address] 08 Apr, 2012 [facility] [address] [facility] [id number] [place] [address] Apr, [facility] [address] [id number] [place] [address] Apr, [facility] [address] [id number] [facility] [place] [address] Mar, [facility] [address] [id number] [place] [address] Mar, [facility] [address] [id number] [facility] [place] [address] Feb, [facility] [address] [id number] [place] [address] Feb, [facility] [address] [id number] [place] [address] Oct, [facility] [address] [id number] [place] [address] 25 Jul, 2011 [facility] [address] [id number] [place] [address] 18 Jul, 2011 [facility] [address] [id number] [place] [address] 16 Jul, 2011 [facility] [address] [id number] [place] [address] 14 Jul, 2011 [facility] [address] [id number] [place] [address] 13 Jul, 2011 [facility] [address] [id number] [place] [address] 11 Jul, 2011 [facility] [address] [id number] [place] [address] Jun, [facility] [address] [id number] [place] [address] Jun, [facility] [address] [id number] [place] [address] May, [facility] [id number] [place] [address] 13 May, 2011 [facility] [id number] [place] [address] Apr, [facility] [address] [id number] [place] [address] Apr, [facility] [id number] [place] [address] Apr, [facility] [id number] [place] [address] Mar, [facility] [id number] [place] [address] Mar, [facility] [id number] [place] [address] Feb, [facility] [id number] [place] [address] Feb, [facility] [id number] [place] [address] Feb, [facility] [id number] [place] [address] Jan, [facility] [id number] [place] [address] Jan, [facility] [id number] [place] [address] Jan, [facility] [id number] [place] [address] Jan, [facility] [address] [id number] [place] [address] Jan, [facility] [id number] [place] [address] Oct, IMMUNIZATIONS No Known Immunizations SOCIAL HISTORY Never Assessed REASON FOR VISIT PLAN OF CARE VITAL SIGNS MEDICATIONS Unknown Medications RESULTS No Results PROCEDURES No Known procedures INSTRUCTIONS MEDICATIONS ADMINISTERED No Known Medications MEDICAL (GENERAL) HISTORY Type Description Date Surgical History No know Surgical history Hospitalization History child
--- OUTSIDE RECORDS SUMMARY | 2019-09-25 17:43 | XMS REPORT ---
Author Author Hanny Chavis Doctor Organization [facility] Address Unknown Phone Unavailable Care Team Providers Care Member Of Technical Staff Name Role Phone Migration, Doctor Unavailable Unavailable PROBLEMS Type Condition ICD9-CM Code [id number] Code Onset Dates Condition S tatus SNOMED Code Problem Chronic fatigue R53.82 Active 8422 9001 Problem Slow transit constipation K59.01 Acti ve [id number] ALLERGIES No Information ENCOUNTERS Encounter Location Date Diagnosis [place] [address] [address] Jul, Chronic fatigue R53.82 ; Taz r loss L65.9 ; Slow transit constipation K59.01 ; Pain in right shoulder M25.511 and Pain in left shoulder M25.512 [place] [address] [address] Mar, Bite or sting by insect with infection W57.XXXA [place] [address] [address] Nov, [facility] [address] [address] Nov, [facility] [address] [address] Nov, [facility] [address] [address] Nov, [facility] [address] [address] Nov, [facility] [address] [address] Nov, [facility] [id number] [place] [address] Jul, [facility] [address] [id number] [address] [place] [address], [place] [address] Jul, [facility] [address] [id number] [address] [place] [address], [place] [address] Jun, [facility] [address] [id number] [address] [place] [address], [place] [address] Jun, [facility] [address] [id number] [address] [place] [address], [place] [address] May, [facility] [address] [id number] [address] [place] [address], [place] [address] May, [facility] [address] [id number] [address] [place] [address], [place] [address] Apr, [facility] [address] [id number] [address] [place] [address], [place] [address] Apr, [facility] [address] [id number] [address] [place] [address], [place] [address] Apr, [facility] [address] [id number] [address] [place] [address], [place] [address] Apr, [facility] [address] [id number] [address] [place] [address], [place] [address] Apr, [facility] [address] [id number] [address] [place] [address], [place] [address] Mar, [facility] [address] [id number] [address] [place] [address], [place] [address] Mar, [facility] [address] [id number] [address] [place] [address], [place] [address] Feb, [facility] [address] [id number] [address] [place] [address], [place] [address] Feb, [facility] [address] [id number] [address] [place] [address], [place] [address] Oct, [facility] [address] [id number] [address] [place] [address], [place] [address] Jul, 2011 [facility] [address] [id number] [address] [place] [address], [place] [address] 18 Jul, 2011 [facility] [address] [id number] [address] [place] [address], [place] [address] 16 Jul, 2011 [facility] [address] [id number] [address] [place] [address], [place] [address] 14 Jul, 2011 [facility] [address] [id number] [address] [place] [address], [place] [address] 13 Jul, 2011 [facility] [address] [id number] [address] [place] [address], [place] [address] 11 Jul, 2011 [facility] [address] [id number] [address] [place] [address], [place] [address] 26 Jun, 2011 [facility] [address] [id number] [address] [place] [address], [place] [address] Jun, [facility] [address] [id number] [address] [place] [address], [place] [address] 29 May, 2011 [facility] [address] [id number] [address] [place] [address], [place] [address] 13 May, 2011 [facility] [address] [id number] [address] [place] [address], [place] [address] Apr, [facility] [address] [id number] [address] [place] [address], [place] [address] Apr, [facility] [address] [id number] [address] [place] [address], [place] [address] Apr, [facility] [address] [id number] [address] [place] [address], [place] [address] 14 Mar, 2011 [facility] [address] [id number] [address] [place] [address], [place] [address] 14 Mar, 2011 [facility] [address] [id number] [address] [place] [address], [place] [address] 16 Feb, 2011 [facility] [address] [id number] [address] [place] [address] Feb, [facility] [address] [id number] [address] [place] [address] Feb, [facility] [address] [id number] [address] [place] [address] Jan, [facility] [address] [id number] [address] [place] [address] Jan, [facility] [address] [id number] [address] [place] [address] Jan, [facility] [address] [id number] [address] [place] [address] Jan, [facility] [address] [id number] [address] [place] [address] Jan, [facility] [address] [id number] [address] [place] [address] Oct, IMMUNIZATIONS No Known Immunizations SOCIAL HISTORY Never Assessed REASON FOR VISIT EMR-[facility] PLAN OF CARE VITAL SIGNS MEDICATIONS No Known Medications RESULTS No Results PROCEDURES No Known procedures INSTRUCTIONS MEDICATIONS ADMINISTERED No Known Medications
--- OUTSIDE RECORDS SUMMARY | 2019-09-25 17:43 | XMS REPORT ---
Author Author Hanny Chavis Doctor Organization [facility] Address Unknown Phone Unavailable Care Team Providers Care Dumpcart Driver Name Role Phone Migration, Doctor Unavailable Unavailable PROBLEMS Type Condition ICD9-CM Code HAY17-EB Code Onset Dates Condition S tatus SNOMED Code Problem Chronic fatigue R53.82 Active 8422 9001 Problem Slow transit constipation K59.01 Acti ve [id number] ALLERGIES No Information ENCOUNTERS Encounter Location Date Diagnosis [place] [address] [address] Jul, Chronic fatigue R53.82 ; Taz r loss L65.9 ; Slow transit constipation K59.01 ; Pain in right shoulder M25.511 and Pain in left shoulder M25.512 [place] [address] [address] Mar, Bite or sting by insect with infection W57.XXXA [place] [address] [address] Nov, [facility] [address] [address] Nov, [facility] [address] [address] Nov, [facility] [address] [address] Nov, [facility] [address] [address] Nov, [facility] [address] [address] Nov, [facility] [address] [place] [id number] [place] [address] Jul, [facility] [address] [id number] [address] [place] [address], [place] [address] Jul, [facility] [address] [id number] [address] [place] [address], [place] [address] Jun, [facility] [address] [id number] [address] [place] [address], [place] [address] Jun, [facility] [address] [id number] [address] [place] [address], [place] [address] May, [facility] [address] [id number] [address] [place] [address], [place] [address] May, [facility] [address] [id number] [address] [place] [address], [place] [address] Apr, [facility] [address] [id number] [address] [place] [address], [place] [address] Apr, [facility] [address] [id number] [address] [place] [address], [place] [address] Apr, [facility] [address] [id number] [address] [place] [address], [place] [address] Apr, [facility] [address] [id number] [address] [place] [address], [place] [address] Apr, [facility] [address] [id number] [address] [place] [address], [place] [address] Mar, [facility] [address] [id number] [address] [place] [address], [place] [address] Mar, [facility] [address] [id number] [address] [place] [address], [place] [address] Feb, [facility] [address] [id number] [address] [place] [address], [place] [address] Feb, [facility] [address] [id number] [address] [place] [address], [place] [address] Oct, [facility] [address] [id number] [address] [place] [address], [place] [address] Jul, 2011 [facility] [address] [id number] [address] [place] [address], [place] [address] 18 Jul, 2011 [facility] [address] [id number] [address] [place] [address], [place] [address] 16 Jul, 2011 [facility] [address] [id number] [address] [place] [address], [place] [address] 14 Jul, 2011 [facility] [address] [id number] [address] [place] [address], [place] [address] 13 Jul, 2011 [facility] [address] [id number] [address] [place] [address], [place] [address] 11 Jul, 2011 [facility] [address] [id number] [address] [place] [address], [place] [address] 26 Jun, 2011 [facility] [address] [id number] [address] [place] [address], [place] [address] Jun, [facility] [address] [id number] [address] [place] [address], [place] [address] 29 May, 2011 [facility] [address] [id number] [address] [place] [address], [place] [address] 13 May, 2011 [facility] [address] [id number] [address] [place] [address], [place] [address] Apr, [facility] [address] [id number] [address] [place] [address], [place] [address] Apr, [facility] [address] [id number] [address] [place] [address], [place] [address] Apr, [facility] [address] [id number] [address] [place] [address], [place] [address] 14 Mar, 2011 [facility] [address] [id number] [address] [place] [address], [place] [address] 14 Mar, 2011 [facility] [address] [id number] [address] [place] [address], [place] [address] 16 Feb, 2011 [facility] [address] [id number] [address] [place] [address] Feb, [facility] [address] [id number] [address] [place] [address] Feb, [facility] [address] [id number] [address] [place] [address] Jan, [facility] [address] [id number] [address] [place] [address] Jan, [facility] [address] [id number] [address] [place] [address] Jan, [facility] [address] [id number] [address] [place] [address] Jan, [facility] [address] [id number] [address] [place] [address] Jan, [facility] [address] [id number] [address] [place] [address] Oct, IMMUNIZATIONS No Known Immunizations SOCIAL HISTORY Never Assessed REASON FOR VISIT EMR-[facility] [place] PLAN OF CARE VITAL SIGNS MEDICATIONS No Known Medications RESULTS No Results PROCEDURES No Known procedures INSTRUCTIONS MEDICATIONS ADMINISTERED No Known Medications
--- OUTSIDE RECORDS SUMMARY | 2019-09-25 17:43 | XMS REPORT | Continuity of Care Document ---
Author Organization Unknown Address Unknown Phone Unavailable Allergies There is no data. Medications There is no data. Problems Date Dx Coded Attending Type Code Diagnosis Diagnosed By 11/07/2009 564.00 Con stipation 11/07/2009 789.00 Abd ominal Pain Unspecified Site 11/07/2009 564.00 Con stipation 11/07/2009 789.00 Abd ominal Pain Unspecified Site 11/07/2009 MANUEL SOL DO 564.00 Constipation 11/07/2009 MANUEL SOL DO 789.00 Abdominal Pain Unspecified Site 11/07/2009 MOSES NELSON APRN 564.00 Constipation 11/07/2009 MOSES NELSON APRN 789.00 Abdominal Pain Unspecified Site 12/12/2009 V72.31 Service Captain Exam, Routine 12/12/2009 V72.31 Service Captain Exam, Routine 12/12/2009 MANUEL SOL DO V72.31 Service Captain Exam, Routine 12/12/2009 MOSES NELSON APRN V72.31 Service Captain Exam, Routine 01/29/2010 239.5 Neop lasm Of Unspecified Nature Of Other Genitourinary Organs 01/29/2010 239.5 Neop lasm Of Unspecified Nature Of Other Genitourinary Organs 01/29/2010 MANUEL SOL DO 239.5 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 01/29/2010 MOSES NELSON APRN 23 9.5 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 07/24/2010 724.2 Back Pain, Lower 07/24/2010 729.5 Pain In Limb 07/24/2010 782.0 Dist urbance Of Skin Sensation 07/24/2010 724.2 Back Pain, Lower 07/24/2010 729.5 Pain In Limb 07/24/2010 782.0 Dist urbance Of Skin Sensation 07/24/2010 MANUEL SOL DO 724.2 Back Pain, Lower 07/24/2010 SWETA BANG MANUEL K 729.5 Pain In Limb 07/24/2010 PARIS SOL DOA K 782.0 Disturbance Of Skin Sensation 07/24/2010 ROSARIO NELSON APRNIDI A 72 4.2 Back Pain, Lower 07/24/2010 ROSARIO NELSON APRNIDI A 72 9.5 Pain In Limb 07/24/2010 ROSARIO NELSON APRNIDI A 78 2.0 Disturbance Of Skin Sensation 01/15/2011 V22.1 PREG LARS, NORMAL OTHER 01/15/2011 V22.1 PREG LARS, NORMAL OTHER 01/15/2011 PARIS SOL DOA K V22.1 , NORMAL OTHER 01/15/2011 ROSARIO NELSON APRNIDI A V2 2.1 , NORMAL OTHER 02/12/2011 V74.5 Std Screen 02/12/2011 V76.2 Cerv ical Cancer Screening (pap Smear) 02/12/2011 V74.5 Std Screen 02/12/2011 V76.2 Cerv ical Cancer Screening (pap Smear) 02/12/2011 MANUEL SOL DO K V74.5 Std Screen 02/12/2011 SWETA BANGMANUEL K V76.2 Cervical Cancer Screening (pap Smear) 02/12/2011 ROSARIO NELSON APRNIDI A V7 4.5 Std Screen 02/12/2011 ROSARIO NELSON APRNIDI A V7 6.2 Cervical Cancer Screening (pap Smear) 03/06/2011 791.5 GLYC OSURIA 03/06/2011 V04.81 FLU DX (3 YRS AND ABOVE, IM) 03/06/2011 791.5 GLYC OSURIA 03/06/2011 V04.81 FLU DX (3 YRS AND ABOVE, IM) 03/06/2011 SWETA BANGMANUEL K 791.5 GLYCOSURIA 03/06/2011 SWETA BANGPARISA K V04.81 FLU DX (3 YRS AND ABOVE, IM) 03/06/2011 ROSARIO NELSON APRNIDI A 79 1.5 GLYCOSURIA 03/06/2011 ROSARIO NELSON APRNIDI A V04.81 FLU DX (3 YRS AND ABOVE, IM) 07/15/2011 649.60 BANDAR R INE SIZE DATE DISCREPANCY -SGA 07/15/2011 649.60 BANDAR R INE SIZE DATE DISCREPANCY -SGA 07/15/2011 MANUEL SOL DO 649.60 UTER INE SIZE DATE DISCREPANCY -SGA 07/15/2011 MOSES NELSON APRN 649.60 UTER INE SIZE DATE DISCREPANCY -SGA 07/31/2011 658.00 HEIDE GOHYDRAMNIOS 07/31/2011 658.00 HEIDE GOHYDRAMNIOS 07/31/2011 MANUEL SOL DO 658.00 OLIGOHYDRAMNIOS 07/31/2011 MOSES NELSON APRN 658.00 OLIGOHYDRAMNIOS 10/24/2011 V24.2 POST F/U, ROUTINE 10/24/2011 V24.2 POST F/U, ROUTINE 10/24/2011 MANUEL SOL DO V24.2 F/U, ROUTINE 10/24/2011 MOSES NELSON APRN V2 4.2 F/U, ROUTINE 04/23/2012 MANUEL SOL DO V25.01 CONTRACEPTION - ORAL CONTRACEPTION 04/23/2012 MANUEL SOL DO V74.5 STD SCREEN 04/23/2012 MANUEL SOL DO V76.2 CERVICAL CANCER SCREENING (PAP SMEAR) 04/23/2012 MOSSE NELSON APRN V25.01 CONTRACEPTION - ORAL CONTRACEPTION 04/23/2012 MOSES NELSON APRN V7 4.5 STD SCREEN 04/23/2012 MOSES NELSON APRN V7 6.2 CERVICAL CANCER SCREENING (PAP SMEAR) 11/29/2013 MOSES NELSON APRN V72.31 DYNAMITE CARTRIDGE CRIMPER EXAM, ROUTINE 11/29/2013 MOSES NELSON APRN V73.81 HPV SCREENING 11/29/2013 MOSES NELSON APRN V76.10 BREAST CANCER SCREENING Procedures Code Description [place] [address] GC/C HLAM PROBE (STATE) 04/24/2012 72158 PAP SMEAR 04/24/2012 Q0091 PAP SMEAR OBTAIN SMEAR 04/24/2012 97189 GC/C HLAM PROBE (STATE) 11/29/2013 14807 PAP SMEAR 11/29/2013 Q0091 PAP SMEAR OBTAIN SMEAR 11/29/2013 80999 TRIC HOMONAS (IN-HOUSE) 11/29/2013 88565 CULT URE UROGENITAL 11/30/2013 Results Test Result Range HCG, QUANTITATIVE - 09/16/19 17:54 [place] [address] mIU/mL NRG Encounters ACCT No. Visit Date/Time Discharge Status Pt. Type Provider Facility Loc./Unit Complaint [id number] 11/29/2013 09:55:00 11/29/2013 23:59: 59 CLS Outpatient MOSES NELSON APRN [id number] 04/23/2012 13:28:00 04/23/2012 23:59: 59 CLS Outpatient MANUEL SOL DO 1622 10/24/2011 11:35:00 10/24/2011 23:59:5 9 CLS Outpatient [id number] 10/24/2011 11:35:00 10/24/2011 23:59: 59 CLS Outpatient [id number] 09/20/2019 16:40:00 09/20/2019 23:59:5 9 CLS Outpatient [facility] [id number] 09/16/2019 17:30:00 Document Registration
[2019-09-25] MEDS ORDERED: NS IV 500 ML 500 ML IV ONE (18:30)
[2019-09-25] MEDS ORDERED: fentaNYL INJECTION 100 MCG/2 ML AMP IVP ONE (18:30)
[2019-09-25 18:31] LABS: BILIRUBIN,URINE NEGATIVE (NEGATIVE); COLOR,URINE RED; GLUCOSE, URINE (UA) 1+ (NEGATIVE); KETONES,URINE 1+ (NEGATIVE); LEUKOCYTE ESTERASE ,URINE 3+ (NEGATIVE); NITRITE,URINE POSITIVE (NEGATIVE); PH,URINE 6.5 (5-9); PROTEIN,URINE 3+ (NEGATIVE)
[2019-09-25 18:34] LABS: BACTERIA,URINE NEGATIVE /HPF; CLARITY,URINE BLOODY; RBC,URINE TNTC /HPF
--- NOTE | 2019-09-25 18:38 | ED GU-Female ---
General Chief Complaint: INTERNAL SPECIALIST Stated Complaint: 7 WKS PREG - BLEEDING Nursing Triage Note: patient states approx 7 wks preg. states started cramping and heavy bleeding approx 45 min ago. states spotting bright red blood all week Nursing Sepsis Screen: No Definite Risk Source: patient Exam Limitations: no limitations History of Present Illness Date Seen by Provider: Sep 25, 2019 Time Seen by Provider: 18:20 Initial Comments The patient presents to the ER by private conveyance from home with chief complaint of heavy bleeding passing several large chicken egg size clots. She does not feel chest pain shortness of breath or lightheaded. She had some nausea, go but none presently. No vomiting. She's had no diarrhea or constipation. She is a at 7 weeks and 3 days with an LMP of August 04, 2019 [facility] She's having low abdominal cramping pain approximately 8 out of 10. She says this is all started about a week ago although started out as just some spotting. She went to see her provider and she is not sure what all testing was done for the results but she was told not to worry about it at that time. The patient has not taken anything for pain. Allergies and Home Medications Allergies Coded Allergies: No Known Drug Allergies (Unverified , 08/17/11) Home Medications Ferrous Sulfate 325 Mg Tablet, 325 MG PO BID, (Reported) Oxycodone Hcl/Acetaminophen 1 Each Tablet, 1 EACH PO every 6 hours PRN, (Reported) Vits W-Ca,Fe,Fa(<1MG) 1 Each Tablet, 1 EACH PO DAILY, (Reported) Patient Home Medication List Home Medication List Reviewed: Yes Review of Systems Review of Systems Constitutional: No chills, No malaise EENTM: No ear discharge, No ear pain, No eye pain Respiratory: No cough, No short of breath Cardiovascular: No chest pain, No edema Gastrointestinal: abdominal pain; No constipation, No diarrhea; nausea; No vomiting Genitourinary: denies discharge, denies dysuria Musculoskeletal: No back pain, No joint pain All Other Systemes Reviewed Negative Unless Noted: Yes Past Rbzlmpy-Kzlbli-Pqjgyk Hx Patient Social History Alcohol Use: Denies Use Recreational Drug Use: No Smoking Status: Never a Smoker Recent Foreign Travel: No Contact w/Someone Who Travel: No Recent Infectious Disease Expo: No Recent Hopitalizations: No (previous X2) Physical Abuse: No Sexual Abuse: No Past Medical History Surgeries: No Respiratory: No Cardiac: Yes Neurological: No : Yes Hx : 3 Hx Para: 4 Hx Total # of Abortions (Sp): 0 Reproductive Disorders: No Gastrointestinal: No Musculoskeletal: No Endocrine: No Psychosocial: No Blood Disorders: No Physical Exam Vital Signs Vital Signs - First Documented 09/25/19 17:50 Pulse 90 Resp 18 B/P (MAP) 143/78 (99) Pulse Ox 99 O2 Delivery Room Air Capillary Refill : Less Than 3 Seconds Height, Weight, BMI Height: 5'" Weight: 115lbs. oz. 52.975970hh; 24.00 BMI Method: General Appearance: WD/WN, mild distress HEENT: PERRL/EOMI, pharynx normal Neck: full range of motion, normal inspection Cardiovascular: normal peripheral pulses, regular rate, rhythm Respiratory: lungs clear, normal breath sounds, no respiratory distress, no accessory muscle use Gastrointestinal: normal bowel sounds, non tender, soft Extremities: normal range of motion, normal inspection, normal capillary refill Neurologic/Psychiatric: no motor/sensory deficits, alert, normal mood/affect, oriented x 3 Skin: normal color, warm/dry Progress/Results/Core Measures Suspected Sepsis Recent Fever Within 48 Hours: No Infection Criteria Present: None New/Unexplained Altered Menta: No Sepsis Screen: No Definite Risk SIRS Temperature: Pulse: 90 Respiratory Rate: 18 Laboratory Tests 09/25/19 17:56: White Blood Count 10.6 Blood Pressure 143 /78 Mean: 99 Laboratory Tests 09/25/19 17:56: Creatinine 0.72, Platelet Count 364, Total Bilirubin 0.6 Results/Orders Lab Results Laboratory Tests Test 09/25/19 17:56 09/25/19 18:24 Range/Units White Blood Count 10.6 4.3-11.0 10^3/uL Red Blood Count 4.47 4.35-5.85 10^6/uL Hemoglobin 11.5 11.5-16.0 G/DL Hematocrit 35 35-52 % Mean Corpuscular Volume 79 L 80-99 FL Mean Corpuscular Hemoglobin 26 25-34 PG Mean Corpuscular Hemoglobin Concent 33 32-36 G/DL Red Cell Distribution Width 15.3 H 10.0-14.5 % Platelet Count 364 130-400 10^3/uL Mean Platelet Volume 9.3 7.4-10.4 FL Neutrophils (%) (Auto) 72 42-75 % Lymphocytes (%) (Auto) 20 12-44 % Monocytes (%) (Auto) 7 0-12 % Eosinophils (%) (Auto) 1 0-10 % Basophils (%) (Auto) 0 0-10 % Neutrophils # (Auto) 7.6 1.8-7.8 X 10^3 Lymphocytes # (Auto) 2.1 1.0-4.0 X 10^3 Monocytes # (Auto) 0.8 0.0-1.0 X 10^3 Eosinophils # (Auto) 0.1 0.0-0.3 10^3/uL Basophils # (Auto) 0.0 0.0-0.1 10^3/uL Sodium Level 135 135-145 MMOL/L Potassium Level 3.3 L 3.6-5.0 MMOL/L Chloride Level 104 98-107 MMOL/L Carbon Dioxide Level 20 L 21-32 MMOL/L Anion Gap 11 5-14 MMOL/L Blood Urea Nitrogen 8 7-18 MG/DL Creatinine 0.72 0.60-1.30 MG/DL Estimat Glomerular Filtration Rate > 60 BUN/Creatinine Ratio 11 Glucose Level 148 H 70-105 MG/DL Calcium Level 9.5 8.5-10.1 MG/DL Corrected Calcium 9.3 8.5-10.1 MG/DL Total Bilirubin 0.6 0.1-1.0 MG/DL Aspartate Amino Transf (AST/SGOT) 34 5-34 U/L Alanine Aminotransferase (ALT/SGPT) 43 0-55 U/L Alkaline Phosphatase 81 40-136 U/L Total Protein 7.8 6.4-8.2 GM/DL Albumin 4.3 3.2-4.5 GM/DL Urine Color RED H Urine Clarity BLOODY H Urine pH 6.5 5-9 Urine Specific [place] 1.015 L 1.016-1.022 Urine Protein 3+ H NEGATIVE Urine Glucose (UA) 1+ H NEGATIVE Urine Ketones 1+ H NEGATIVE Urine Nitrite POSITIVE H NEGATIVE Urine Bilirubin NEGATIVE NEGATIVE Urine Urobilinogen 4.0 < = 1.0 MG/DL Urine Leukocyte Esterase 3+ H NEGATIVE Urine RBC (Auto) 3+ H NEGATIVE Urine RBC TNTC H /HPF Urine WBC NONE /HPF Urine Crystals NONE /LPF Urine Bacteria NEGATIVE /HPF Urine Casts NONE /LPF Urine Mucus NEGATIVE /LPF Urine Culture Indicated NO My Orders Orders - SULLY DELUNA Ua Culture If Indicated (09/25/19 18:02) Urine Bedside (09/25/19 18:02) Cbc With Automated Diff (09/25/19 18:10) Hcg,Quantitative (09/25/19 18:10) Ed Iv/Invasive Line Start (09/25/19 18:10) Comprehensive Metabolic Panel (09/25/19 18:10) Ed Iv/Invasive Line Start (09/25/19 18:30) Ns Iv 500 Ml (Sodium Chloride 0.9%) (09/25/19 18:30) Fentanyl Injection (Sublimaze Injection (09/25/19 18:30) Medications Given in ED Current Medications Medications Dose Ordered Sig/Archana Route Start Time Stop Time Status Last Admin Dose Admin Fentanyl Citrate 25 mcg ONCE ONCE IVP 09/25/19 18:30 09/25/19 18:33 DC 09/25/19 18:35 25 MCG Sodium Chloride 500 ml @ 0 mls/hr Q0M ONCE IV 09/25/19 18:30 09/25/19 18:33 DC 09/25/19 18:35 500 MLS/HR Vital Signs/I&O 09/25/19 17:50 Pulse 90 Resp 18 B/P (MAP) 143/78 (99) Pulse Ox 99 O2 Delivery Room Air Capillary Refill : Less Than 3 Seconds Blood Pressure Mean: 99 Progress Note : Time: 18:57 Progress Note Patient is no longer expressing any significant pain after 25 g of fentanyl. We did a speculum examination which revealed a blood clot filled vaginal vault and an open, patulous, cervix without laceration. There is a membrane wrapped 6 x 3 cm piece of tissue consistent with products of conception sitting at the os of the cervix there was easily retrieved. No membranes or tissue was seen at the cervix after this was removed. There is no active bleeding. Patient tolerated the examination well. Consults Consults : Consulting Physician: MANUEL CHIRINOS DO Consults Notes Discussed the case with Dr. Chirinos at 1830 and she reviewed the case and saw that on 09/18/19 the patient had an ultrasound demonstrating an intrauterine with pole but no identifiable heart tones or movement which could be because of the early gestation with measurements putting the fetus at 6 weeks 1 day. This would line up with the LMP. A repeat ultrasound is scheduled for 09/30/19. We have obtained lab and we have a quantitative on 09/15 of 37,690 and 09/19 of 43,243 to compare to today. We'll look for anemia and give her half a liter fluids for her marginal tachycardia of 100. We'll then discuss options for how to deal with what appears to be an imminent miscarriage. Dr. Chirinos recommends that the patient wants to pursue a D&C that we would have to contact the on-call INTERNAL SPECIALIST provider. 1904: Discussed the findings with Dr. Chirinos and she agrees with plan to follow up outpatient. She is okay with a dose of antibiotics. Departure Impression Primary Impression: Complete miscarriage Disposition: HOME, SELF-CARE Condition: Stable Departure-Patient Inst. Decision time for Depature: 19:[address] [place] Patient Instructions: Dealing With Miscarriage, Miscarriage (DC) Add. Discharge Instructions: Plan to follow up with your hotel security officer by calling Friday for an appointment. Expect to have some bleeding consistent with the level of period for the next several days to week. Return to the ER if you experience chest pain, shortness of breath, blood clots larger than a chicken's egg or you are soaking through a maternity pad more than once an hour. If you experience fever, foul discharge from the vagina or other worrisome symptoms then you need to see a doctor as soon as possible. All discharge instructions reviewed with patient and/or family. Voiced understanding. Work/School Note: Work Release Form Date Seen in the Emergency Department: Sep 25, 2019 Return to Work: Sep 28, 2019 SULLY DELUNA Sep 25, 2019 18:38
[2019-09-25 18:39] LABS: BASOPHILS % (AUTO) 0 % (0-10); EOSINOPHILS # (AUTO) 0.1 10^3/uL (0.0-0.3); EOSINOPHILS % (AUTO) 1 % (0-10); HEMATOCRIT 35 % (35-52); HEMOGLOBIN 11.5 G/DL (11.5-16.0); LYMPHOCYTES # (AUTO) 2.1 X 10^3 (1.0-4.0); LYMPHOCYTES % (AUTO) 20 % (12-44); MEAN CORPUSCULAR HEMOGLOBIN 26 PG (25-34); MEAN CORPUSCULAR HGB CONC 33 G/DL (32-36); MEAN CORPUSCULAR VOLUME 79 FL (80-99); MEAN PLATELET VOLUME 9.3 FL (7.4-10.4); MONOCYTES # (AUTO) 0.8 X 10^3 (0.0-1.0); MONOCYTES % (AUTO) 7 % (0-12); NEUTROPHILS # (AUTO) 7.6 X 10^3 (1.8-7.8); NEUTROPHILS % (AUTO) 72 % (42-75); PLATELET COUNT 364 10^3/uL (130-400); RED CELL DISTRIBUTION WIDTH 15.3 % (10.0-14.5); WHITE BLOOD COUNT 10.6 10^3/uL (4.3-11.0)
[2019-09-25 18:44] LABS: ALBUMIN 4.3 GM/DL (3.2-4.5)
[2019-09-25 18:45] LABS: CHLORIDE 104 MMOL/L (98-107); POTASSIUM 3.3 MMOL/L (3.6-5.0); SODIUM 135 MMOL/L (135-145)
[2019-09-25 18:46] LABS: CALCIUM 9.5 MG/DL (8.5-10.1)
[2019-09-25 18:47] LABS: GLUCOSE 148 MG/DL (70-105); TOTAL PROTEIN 7.8 GM/DL (6.4-8.2)
[2019-09-25 18:48] LABS: CARBON DIOXIDE 20 MMOL/L (21-32)
[2019-09-25 18:49] LABS: BILIRUBIN,TOTAL 0.6 MG/DL (0.1-1.0)
[2019-09-25 18:50] LABS: ALKALINE PHOSPHATASE 81 U/L (40-136)
--- NOTE | 2019-09-25 18:50 | NUR ---
VAGINAL EXAM DONE BY DR DELUNA, PRODUCTS OF CONCEPTION REMOVED BY DR DELUNA.
[2019-09-25 18:51] LABS: CREATININE SERUM 0.72 MG/DL (0.60-1.30); GFR ESTIMATED > 60
[2019-09-25 18:52] LABS: BUN/CREATININE RATIO 11
[2019-09-25 18:54] LABS: ALANINE AMINOTRANSFERASE 43 U/L (0-55)
--- NOTE | 2019-09-25 19:06 | NUR ---
REPORT TO AYANNA CADET
--- NOTE | 2019-09-25 19:33 | NUR ---
Pathologic Exam Release paperwork signed by pt and witnessed by this RN. POC placed in sterile container and sent to lab as requested by family. Pt resting quietly at this time, no complaints.
[2019-09-25] MEDS ORDERED: ceFAZolin INJECTION 1,000 MG in WATER (STERILE) FOR INJECTION 10 ML IV ONE (19:45)
[2019-09-25 19:54] VITALS: BP 121/85
== END 2019-09-25 19:55 | disposition home or self-care (01) ==
LOC: EDUNIT# 17:37 → ER 17:39
DX: O03.9 Complete or unspecified spontaneous abortion without complication (principal)
CPT/HCPCS: 36415; 80053; 81000; 84702; 84703; 85025

== ENCOUNTER → 2020-04-25 | Outpatient (CLI) | payer OTHER ==
--- NOTE | 2020-04-25 17:26 | Diagnostic Imaging Report ---
INDICATION: Routine screening. No prior mammograms are available for comparison. This is a baseline study. 2-D and 3-D bilateral screening mammography was performed with CAD. Both breasts are heterogeneously dense, limiting the sensitivity of mammography. No mass or malignant appearing microcalcifications are seen. Axillae are unremarkable. IMPRESSION: BI-RADS Category 1. No mammographic features suspicious for malignancy are identified. ACR BI-RADS Category 1: Negative. Result letter will be mailed to the patient. Note: At least 10% of breast cancer is not imaged by mammography. Dictated by: Dictated on workstation # [id number]
== END ==
LOC: RAD 15:11
PROVIDERS: ATTEND Nurse Practitioner Family
DX: Z12.31 Encounter for screening mammogram for malignant neoplasm of breast (principal)
CPT/HCPCS: 77063; 77067

== ENCOUNTER 2021-07-09 05:34 | Outpatient (CLI) | payer SELFPAY ==
[~2021-07-09] VITALS: Ht 154.9 cm; Wt 57.3 kg
== END 2021-07-09 12:01 | disposition home or self-care (01) ==
LOC: PREOP 05:34
PROVIDERS: ATTEND Obstetrics & Gynecology
DX: Z01.818 Encounter for other preprocedural examination (principal)

== ENCOUNTER 2021-07-23 07:49 | Day surgery (SDC) | payer OTHER ==
[~2021-07-23] VITALS: Ht 154 cm; Wt 57.3 kg
[2021-07-23] VITALS (10 sets, daily range): BP systolic 120–137; BP diastolic 68–91
[2021-07-23 08:50] LABS: HEMATOCRIT 35 % (35-52); HEMOGLOBIN 10.8 g/dL (11.5-16.0); MEAN CORPUSCULAR HEMOGLOBIN 24 pg (25-34); MEAN CORPUSCULAR HGB CONC 31 g/dL (32-36); MEAN CORPUSCULAR VOLUME 79 fL (80-99); MEAN PLATELET VOLUME 9.2 fL (9.0-12.2); PLATELET COUNT 351 10^3/uL (130-400); WHITE BLOOD COUNT 6.2 10^3/uL (4.3-11.0)
[2021-07-23] MEDS ORDERED: LACTATED RINGERS 1,000 ML IV PRN (09:15)
--- NOTE | 2021-07-23 09:39 | Progress Note-Pre Operative ---
Pre-Operative Progress Note H&P Reviewed The H&P was reviewed, patient examined and no changes noted. Date Seen by Provider: Jul 23, 2021 Time Seen by Provider: :30 Date H&P Reviewed: Jul 23, 2021 Time H&P Reviewed: 09:30 Pre-Operative Diagnosis: AUB, Thickened endometrium DAR ANDREA DO Jul 23, 2021 09:38
--- NOTE | 2021-07-23 09:40 | Discharge Inst-Women's Service ---
Discharge Inst-Women's Serv Depart Medication/Instructions New, Converted or Re-Newed RX: Transmitted to Pharmacy Problems Reviewed?: Yes Consults/Follow Up Additional Follow Up: Yes Orders/Referrals Dr. Andrea or jeannie in 2 weeks Activity Activity: Activity as Tolerated Driving Instructions: No Driving for 1 Week NO SMOKING: NO SMOKING Nothing Inside Vagina: No Douching, No [place], No Tampons Diet Discharge Diet: No Restrictions Symptoms to Report to : Bleeding Excessive, Pain Increased, Fever Over 101 Degrees F, Vaginal Bleeding Increase, Questions/Concerns For Any Problems or Questions: Contact Your Physician DAR ANDREA DO Jul 23, 2021 09:40
[2021-07-23] MEDS ORDERED: IBUP-1773 PO (09:41)
[2021-07-23] MEDS ORDERED: D5 LR IV SOLUTION 1,000 ML IV SCH (09:45)
[2021-07-23] MEDS ORDERED: ONDANSETRON 4 MG/2 ML (SDV) Z0FRAN IVP PRN ×2 (09:45→11:00)
[2021-07-23] MEDS ORDERED: KETOROLAC 30 MG/ML VIAL IVP ONE (09:45)
[2021-07-23] MEDS ORDERED: BUPIVACAINE 0.25% 10 ML (SENSORCAINE) VIAL ONE (10:06)
[2021-07-23] MEDS ORDERED: fentaNYL INJ 100 MCG/2 ML AMP ONE (10:09)
[2021-07-23] MEDS ORDERED: ONDANSETRON 4 MG/2 ML (SDV) Z0FRAN ONE (10:09)
[2021-07-23] MEDS ORDERED: proPOfol 200 MG/20 ML (DIPRIVAN) VIAL IV ONE (10:09)
[2021-07-23] MEDS ORDERED: LIDOCAINE PF 2% 5 ML (XYLOCAINE) VIAL ONE (10:09)
[2021-07-23] MEDS ORDERED: MIDAZOLAM 2 MG/2 ML (VERSED) VIAL ONE (10:09)
[2021-07-23] MEDS ORDERED: morphine INJ 10 MG/ML 1ML (SYR OR VIAL) IVP ONE (11:00)
--- NOTE | 2021-07-23 11:04 | Anesthesia-General Post-Op ---
General Patient Condition Mental Status/LOC: Same as Preop Cardiovascular: Satisfactory Nausea/Vomiting: Absent Respiratory: Satisfactory Pain: Controlled Complications: Absent Post Op Complications Complications None Follow Up Care/Instructions Patient Instructions None needed. Anesthesia/Patient Condition Patient Condition Patient is in PACU, resting but awakens easily without C/O pain or nausea, doing well, stable vital signs, no apparent adverse anesthesia problems. MICHAEL DUKE DO Jul 23, 2021 11:04
[2021-07-23] MEDS ORDERED: KETOROLAC 30 MG/ML VIAL ONE (11:59)
--- NOTE | 2021-07-23 14:32 | OPERATIVE REPORT ---
DATE OF SERVICE: PREOPERATIVE DIAGNOSES: 1. A 40-year-old female with abnormal uterine bleeding. 2. Thickened endometrium on ultrasound. POSTOPERATIVE DIAGNOSES: 1. A 40-year-old female with abnormal uterine bleeding. 2. Thickened endometrium on ultrasound. PROCEDURE: D and C. SURGEON: Aman Chang DO ANESTHESIA: LMA general. ESTIMATED BLOOD LOSS: Minimal. URINE OUTPUT: 80 mL drained at the end of the procedure. FLUIDS: 800 mL lactated Ringer's solution. FINDINGS: Grossly normal appearing external female genitalia with a moderate amount of endometrial tissue. SPECIMEN SENT: Endometrial curettings. INDICATIONS FOR PROCEDURE: This 40-year-old female patient who is consulted to my office for abnormal uterine bleeding noted from the [facility]. There was finding on ultrasound, of thickened endometrium, so I discussed with the patient endometrial biopsy due to her age versus D and C. After both were discussed in detail, we both agreed that curative properties of D and C were more attractive as an option. Therefore, we went for a D and C. Risks of procedure were discussed with the patient in detail. After all of her questions were answered, consent was obtained in the preoperative area and the patient was taken to the operating room. OPERATIVE REPORT IN DETAIL: Once in the operating room, anesthesia was found to be adequate. She was placed in dorsal lithotomy position, prepped and draped in normal sterile fashion where a timeout was performed. A weighted speculum inserted to the patient's vagina. Right angle retractor was used to visualize the cervix, which was grasped at 12 o'clock position using a long Allis clamp. Paracervical block was then performed at 3 and 9 o'clock positions on the cervix. Care was taken to aspirate for injecting 5 mL of 0.25% Marcaine injected into each site. I then gently sound the uterine cavity, depth was found to be 8 cm. I then gently dilated the cervix using Hanks dilators to maximum dilatation approximately 1.2 cm, at which point I performed a gentle curettage of all endometrial surfaces using a medium size endometrial curette. Once a gentle uterine cry is appreciated in all directions, I note that there is little to minimal bleeding noted from the external cervical os. All of that tissue was collected and sent as endometrial curettings, after which there was no active bleeding noted from the cervix itself. All instruments were removed from the patient's vagina. The patient tolerated the procedure well and sent to recovery area in stable condition. Lap and sponge counts were correct at the end of the procedure. Instrument counts correct as well. Job ID: [id number] DocumentID: [id number] Dictated Date: 07/23/2021 11:04:10 Sales Representative Business Courses Date: 07/23/2021 14:31:35 Dictated By: DO POLLY WASHINGTON
== END 2021-07-23 12:55 | disposition home or self-care (01) ==
LOC: SDC 07:49
PROVIDERS: ATTEND Obstetrics & Gynecology
DX: N93.9 Abnormal uterine and vaginal bleeding, unspecified (principal); R93.89 Abnormal findings on diagnostic imaging of other specified body structures
CPT/HCPCS: 36415; 84703; 85027; 86850; 86900; 86901; 87081